=== PATIENT | male | born 1985 | race Caucasian/White ===

== ENCOUNTER → 2018-08-08 08:20 | Outpatient (CLI) | payer MEDICAID, SELFPAY ==
--- NOTE | 2018-08-08 | LES_PTH ---
PATIENT: MATTHIEU LEONARD LOC: [facility] U#:[id number] AGE/SX: 40/M ROOM: RE08/08/[address]: Dr. Juan M Mohan MD : 1985 BED: DIS: SPEC #: [id number] RECD: 08/08/18 17:43 STATUS: ALEKSEY CHANDU #: [id number] PRAVIN: 08/08/18 00:[address]: Juan M Mohan DEPT: SURGICAL PATHOLOGY RECD BY: Deon Moura ENTERED: 08/09/18 12:13 SP TYPE: Lesion OTHR DR: Dr. 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 CRISPIN:[email or web address] 08/10/18 COMMENT Case has been reviewed in consultation with Dr. Gomez who concurs with the above diagnosis. IDC:AM MICROSCOPIC DESCRIPTION Slides are reviewed. GROSS DESCRIPTION Received in fixative is one container labeled with the patient's name and designated right upper lid. The specimen consists of a polypoid piece of francois-brown skin measuring 0.7 x 0.4 x 0.3 cm. The specimen is inked, bisected and submitted entirely in one cassette. / SJ:rg 08/09/18 TC:1 CPT: 11360
== END ==
PROVIDERS: Family Provider Family Medicine; PCP Family Medicine; Visit Provider Ophthalmology
DX: B07.9 Viral wart, unspecified (principal)
CPT/HCPCS: 88305

== ENCOUNTER → 2018-08-17 08:05 | Outpatient (CLI) | payer MEDICAID, SELFPAY ==
--- NOTE | 2018-08-16 16:14 | LES_PTH ---
PATIENT: MATTHIEU LEONARD LOC: [facility] U#:[id number] AGE/SX: 40/M ROOM: RE08/17/[address]: Dr. Juan M Mohan MD : 1985 BED: DIS: SPEC #: [id number] RECD: 08/16/18 17:31 STATUS: ALEKSEY CHANDU #: [id number] PRAVIN: 08/16/18 16:[address]: Juan M Mohan DEPT: SURGICAL PATHOLOGY RECD BY: Harrison Umana ENTERED: 08/17/18 09:39 SP TYPE: Lesion OTHR DR: Dr. Juan M Engel MD Tissues: Skin of eyelid, NOS Procedures: Surgery Specimen Level IV HEADER OPERATION: Removal of multiple lesions LLL PRE-OP DIAGNOSIS: Multiple lesions LLL TISSUE SUBMITTED: Left lower lid lesion excision - lesions enlarging MICROSCOPIC DIAGNOSIS Left lower lid, lesion, excision: Squamous papilloma (acrochordon). CE:[email or web address] 08/18/18 MICROSCOPIC DESCRIPTION Slides are reviewed. GROSS DESCRIPTION Received in fixative is one container labeled with the patient's name and designated left lower lid. The specimen consists of a papillomatous portion of skin measuring 0.4 x 0.3 x 0.4 cm. The specimen is totally submitted in one cassette. / CE:wolfgang 08/17/18 TC: 1 CPT: 61898
== END ==
PROVIDERS: Family Provider Family Medicine; PCP Family Medicine; Referring Provider Ophthalmology; Visit Provider Ophthalmology
DX: L98.8 Other specified disorders of the skin and subcutaneous tissue (principal)
CPT/HCPCS: 88305